=== PATIENT | female | born 1995 | race American Indian/Alaskan Native ===

== ENCOUNTER 2018-12-01 02:07 | Emergency (ER) | payer SELFPAY ==
[2018-12-01] MEDS ORDERED: SODIUM CHLORIDE 0.9% 1000 ML 1,000 ML IV ONE (02:56)
[2018-12-01] MEDS ORDERED: ONDANSETRON 4 MG/2 ML INJ IV ONE (02:56)
[2018-12-01] MEDS ORDERED: MORPHINE 4 MG/1 ML INJ IV ONE (02:56)
--- NOTE | 2018-12-01 03:00 | Emergency Department Report ---
<HU BEAR - Last Filed: 12/01/18 03:19> ED Abdominal Pain HPI - General Chief Complaint: Abdominal Pain Stated Complaint: VOMITING, DIARRHEA, CHILLS Time Seen by Provider: 12/01/18 02:52 Source: patient Mode of arrival: Ambulatory Limitations: No Limitations - History of Present Illness Initial Comments: This is a 23-year-old female nontoxic, well nourished in appearance, no acute signs of distress presents to the ED with c/o of headache, diarrhea, nausea and vomiting and abdominal 2 days. Patient describes vomiting as food content and yellow gastric acid. Patient describes abdominal pain as cramping and aching with level of 8/10 to right lower and upper abdomen area. Patient denies worst headache or tunderclap headache. Patient denies any blurry vision or visual changes. Denies any head injuries or trauma. Patient stated this is a typical migraine headache for her. She states headache is mostly in the frontal scalp area. Rates headache as a 3 out of 10. Patient denies chest pain, short of breath, fever, chills, stiff neck, numbness or tingling. Patient denies any diarrhea or constipation. Patient denies any recent travels. Patient stated allergies to methylphenidate. PMH includes HTN and migrane headaches which she stated she has not been taking her medications for 2 months. MD Complaint: abdominal pain -: days(s) (2) Location: RUQ, RLQ Radiation: none Migration to: no migration Severity: moderate Severity scale (0 -10): 8 Quality: cramping, aching Consistency: constant Improves With: nothing Worsens With: nothing Associated Symptoms: nausea, vomiting, diarrhea, chills. denies: fever, constipation, dysuria, hematemesis, hematochezia, melena, hematuria, anorexia, syncope - Related Data Previous Rx's Medication Instructions Recorded Last Taken Type AtorvaSTATin [Lipitor] 40 mg PO QHS #30 tab 12/01/18 Unknown Rx Lisinopril [Zestril TAB] 20 mg PO QDAY #30 tablet 12/01/18 Unknown Rx Topiramate [Topamax] 25 mg PO BID #60 tablet 12/01/18 Unknown Rx Triamter/Hctz 37.5-25 mg 1 tab PO QDAY #30 tablet 12/01/18 Unknown Rx [Maxzide-25] amLODIPine [Norvasc] 10 mg PO DAILY #30 tab 12/01/18 Unknown Rx Allergies Allergy/AdvReac Type Severity Reaction Status Date / Time methylphenidate Allergy Diarrhea Verified 12/01/18 02:30 [From Ritalin] ED Review of Systems Constitutional: chills. denies: fever Eyes: denies: eye pain, eye discharge, vision change ENT: denies: ear pain, throat pain Respiratory: denies: cough, shortness of breath, wheezing Cardiovascular: denies: chest pain, palpitations Endocrine: no symptoms reported Gastrointestinal: abdominal pain, nausea, vomiting. denies: diarrhea Genitourinary: denies: urgency, dysuria, discharge Musculoskeletal: denies: back pain, joint swelling, arthralgia Skin: denies: rash, lesions Neurological: headache. 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 - Surgical History Past Surgical History?: No - Social History Smoking Status: Current Every Day Smoker Substance Use Type: None - Medications Home Medications: Home Medications Medication Instructions Recorded Confirmed Last Taken Type AtorvaSTATin [Lipitor] 40 mg PO QHS #30 tab 12/01/18 Unknown Rx Lisinopril [Zestril TAB] 20 mg PO QDAY #30 tablet 12/01/18 Unknown Rx Topiramate [Topamax] 25 mg PO BID #60 tablet 12/01/18 Unknown Rx Triamter/Hctz 37.5-25 mg 1 tab PO QDAY #30 tablet 12/01/18 Unknown Rx [Maxzide-25] amLODIPine [Norvasc] 10 mg PO DAILY #30 tab 12/01/18 Unknown Rx ED Physical Exam - General Limitations: No Limitations General appearance: alert, in no apparent distress - Head Head exam: Present: atraumatic, normocephalic - Eye Eye exam: Present: normal appearance, PERRL, EOMI - Neck Neck exam: Present: normal inspection, full ROM. Absent: tenderness, meningismus, lymphadenopathy - Respiratory Respiratory exam: Present: normal lung sounds bilaterally. Absent: respiratory distress, wheezes, rales, rhonchi, stridor, chest wall tenderness, accessory muscle use, decreased breath sounds, prolonged expiratory - Cardiovascular Cardiovascular Exam: Present: regular rate, normal rhythm, normal heart sounds. Absent: irregular rhythm, systolic murmur, diastolic murmur, rubs, gallop - GI/Abdominal GI/Abdominal exam: Present: soft, tenderness (RUQ and RLQ), normal bowel sounds. Absent: distended, guarding, rebound, rigid, diminished bowel sounds - Extremities Exam Extremities exam: Present: normal inspection, full ROM - Back Exam Back exam: Present: normal inspection, full ROM. Absent: tenderness, CVA tenderness (R), CVA tenderness (L) - Neurological Exam Neurological exam: Present: alert, oriented X3, normal gait - Expanded Neurological Exam Expanded Patient oriented to: Present: person, place, time Cranial nerves: EOM's Intact: Normal, Facial Sensation: Normal Cerebellar function: Finger to Nose: Normal Motor strength exam: RUE: 5, LUE: 5, RLE: 5, LLE: 5 Best Eye Response (Schlater): (4) open spontaneously Best Motor Response (Nam): (6) obeys commands Best Verbal Response (Schlater): (5) oriented Nam Total: 15 - Psychiatric Psychiatric exam: Present: normal affect, normal mood - Skin Skin exam: Present: warm, dry, intact, normal color. Absent: rash ED Course - Reevaluation(s) Reevaluation #1: 12/01/18 03:06 Patient is speaking in full sentences with no signs of distress noted. - Consultations Consultation #1: 12/01/18 03:06 Patient has been consulted with Dr. Topher V about patient history and physical exam and examined patient self and agrees to ED plan of care. ED Medical Decision Making - Lab Data Result diagrams: 12/01/18 02:49 - Medical Decision Making This is a 23-year-old female that presents with abdominal pain, nausea vomiting as well as headache. Patient is currently stable and was examined by me and Dr. Topher V. labs ordered. CT abdomen/pelvis with IV contrast ordered. EKG obtained. Normal saline, atenolol, morphine and Zofran started. Patient was signed out to Dr. Obando for further evaluation and treatment. At time of sign out, the patient does not seem toxic or ill in appearance. No acute signs of distress noted. ED Disposition Clinical Impression: Hypertensive urgency, Migraine headache, Abdominal pain, Medication refill Disposition: DC-01 TO HOME OR SELFCARE Condition: Stable Instructions: Abdominal Pain (ED), Hypertension (ED), Migraine Headache (ED) Prescriptions: AtorvaSTATin [Lipitor] 40 mg PO QHS #30 tab Triamter/Hctz 37.5-25 mg [Maxzide-25] 1 tab PO QDAY #30 tablet amLODIPine [Norvasc] 10 mg PO DAILY #30 tab Topiramate [Topamax] 25 mg PO BID #60 tablet Lisinopril [Zestril TAB] 20 mg PO QDAY #30 tablet Referrals: [facility] MD MAURA [Primary Care Provider] - 3-5 Days Forms: Work/School Release Form(ED) <MARIELA OBANDO - Last Filed: 12/01/18 05:40> ED Review of Systems ROS: Stated complaint: VOMITING, DIARRHEA, CHILLS Other details as noted in HPI ED Course Vital Signs 12/01/18 12/01/18 12/01/18 02:19 02:48 02:50 Temperature 97.5 F L 97.9 F Pulse Rate 87 81 Respiratory 16 14 Rate Blood Pressure 214/150 Blood Pressure 214/150 [Left] O2 Sat by Pulse 98 100 99 Oximetry 12/01/18 12/01/18 12/01/18 03:00 03:15 03:30 Temperature Pulse Rate 79 84 74 Respiratory 13 14 15 Rate Blood Pressure 214/150 194/137 194/137 Blood Pressure [Left] O2 Sat by Pulse 100 99 Oximetry 12/01/18 12/01/18 12/01/18 03:45 04:15 04:30 Temperature Pulse Rate 72 68 Respiratory 14 20 Rate Blood Pressure 184/132 186/130 Blood Pressure [Left] O2 Sat by Pulse 99 100 99 Oximetry 12/01/18 12/01/18 12/01/18 04:45 05:00 05:15 Temperature Pulse Rate 71 61 65 Respiratory 14 23 20 Rate Blood Pressure 180/120 184/114 171/108 Blood Pressure [Left] O2 Sat by Pulse 99 99 99 Oximetry 12/01/18 05:30 Temperature Pulse Rate 65 Respiratory 17 Rate Blood Pressure 189/129 Blood Pressure [Left] O2 Sat by Pulse 99 Oximetry ED Medical Decision Making - Lab Data Result diagrams: 12/01/18 02:49 12/01/18 02:49 - Medical Decision Making I evalauted Mrs. Mata. She has multiple concerns. She does not have a primary care provider or insurance. She has moved from [place], [place] 6 months ago. She tried to make her medication last, which is while is not taking her medication daily. Home medications include; Lisinopril Triamterene/HCTZ Amlodipine Topiramate Atorvastatin 1. mild headache, hx of migraine CROWELL, typical for patient, resolved with medications in the ED. She has chronic migraine. She takes topiramate daily to address this. 2. abdominal pain with normal CT and normal WBC, no indication of peritonitis or acute inflammatory process 3. Hypertensive urgency: no evidence of end organ damage BP improved to 180/120 with IV labetalol, Patient admits BP is rarely below this value 4. Medication refill: I provided refills for out 5 medications Referred to [facility] Critical care attestation.: If time is entered above; I have spent that time in minutes in the direct care of this critically ill patient, excluding procedure time. ED Disposition Is pt being admited?: No Does the pt Need Aspirin: No
[2018-12-01 03:07] LABS: Basophils % (Auto) 0.6 % (0.0-1.8); Eosinophils # (Auto) 0.2 K/mm3 (0.0-0.4); Eosinophils % (Auto) 2.9 % (0.0-4.3); Hematocrit 38.9 % (30.3-42.9); Hemoglobin 13.2 gm/dl (10.1-14.3); Lymphocytes # (Auto) 1.5 K/mm3 (1.2-5.4); Lymphocytes % (Auto) 26.8 % (13.4-35.0); Mean Corpuscular HGB Conc 34 % (30-34); Mean Corpuscular Volume 88 fl (79-97); Monocytes # (Auto) 0.3 K/mm3 (0.0-0.8); Monocytes % (Auto) 5.7 % (0.0-7.3); Platelet Count 231 K/mm3 (140-440); Red Blood Count 4.42 M/mm3 (3.65-5.03); Red Cell Distribution Width 13.4 % (13.2-15.2)
[2018-12-01 03:40] LABS: Alanine Aminotransferase 12 units/L (7-56); Albumin 4.4 g/dL (3.9-5); BUN/Creatinine Ratio 12; Blood Urea Nitrogen 7 mg/dL (7-17); Hemolysis Index 0
[2018-12-01 04:36] LABS: Bilirubin,Urine NEG (Negative); Color,Urine Yellow (Yellow)
[2018-12-01 04:37] LABS: Bacteria,Urine 1+ /HPF (Negative); Blood,Urine LG (Negative); Mucus,Urine FEW /HPF; Urobilinogen,Urine < 2.0 mg/dL (<2.0)
--- NOTE | 2018-12-01 04:40 | Cat Scan Report ---
CT ABDOMEN AND PELVIS WITH CONTRAST INDICATION / CLINICAL INFORMATION: abdominal pain. TECHNIQUE: Axial CT images were obtained through the abdomen and pelvis after 100 mL Omnipaque [address] scans at this location are performed using CT dose reduction for ALARA by means of automated exposure control. COMPARISON: None available. FINDINGS: LOWER CHEST: No significant abnormality. LIVER: No significant abnormality. GALLBLADDER: No significant abnormality. BILE DUCTS: No significant abnormality. PANCREAS: No significant abnormality. SPLEEN: No significant abnormality. ADRENALS: No significant abnormality. RIGHT KIDNEY and URETER: No significant abnormality. LEFT KIDNEY and URETER: No significant abnormality. STOMACH and SMALL BOWEL: No significant abnormality. COLON: No significant abnormality. APPENDIX: No significant abnormality. PERITONEUM: Trace free fluid in the cul-de-sac. No free air. No fluid collection. LYMPH NODES: No significant adenopathy. AORTA and ARTERIES: No significant abnormality. IVC and VEINS: Left-sided inferior vena cava which empties into the left renal vein. URINARY BLADDER: No significant abnormality. REPRODUCTIVE ORGANS: Uterus shows no acute abnormality. ADDITIONAL FINDINGS: None. SKELETAL SYSTEM: No significant abnormality. IMPRESSION: 1. No inflammatory process or bowel obstruction. 2. Trace free fluid in the pelvis which may be physiologic in this young female patient. Signer Name: Antoinette Victoria MD Signed: 12/01/2018 4:35 AM Workstation Name: [id number]
[2018-12-01] MEDS ORDERED: POTASSIUM CHLORIDE ER 20 MEQ TAB PO ONE (04:55)
[2018-12-01 05:55] VITALS: BP 199/130
== END 2018-12-01 05:56 | disposition home or self-care (01) ==
LOC: ED 02:07
DX: G43.909 Migraine, unspecified, not intractable, without status migrainosus (principal); I16.0 Hypertensive urgency; R10.9 Unspecified abdominal pain; I10 Essential (primary) hypertension; F17.200 Nicotine dependence, unspecified, uncomplicated; Z76.0 Encounter for issue of repeat prescription; Z88.8 Allergy status to other drugs, medicaments and biological substances
CPT/HCPCS: 36415; 74177; 80053; 81001; 83690; 84703; 85025; 93005; 93010; 96361; 96374; 96375; 99284; J2270; J2405; J7030; Q9967

== ENCOUNTER 2019-06-21 15:56 | Emergency (ER) | payer OTHER ==
--- NOTE | 2019-06-21 17:23 | Emergency Department Report ---
<GUILLAUME CHANDLER III - Last Filed: 06/22/19 02:18> ED HPI - General Chief complaint: High BP Stated complaint: 6WKS PREGANT/HBP Time Seen by Provider: 06/21/19 16:59 - Related Data Previous Rx's Medication Instructions Recorded Last Taken Type AtorvaSTATin [Lipitor] 40 mg PO QHS #30 tab 12/01/18 Unknown Rx Topiramate [Topamax] 25 mg PO BID #60 tablet 12/01/18 Unknown Rx Triamter/Hctz 37.5-25 mg 1 tab PO QDAY #30 tablet 12/01/18 Unknown Rx [Maxzide-25] amLODIPine 10 mg PO DAILY #30 tab 12/01/18 Unknown Rx lisinopriL [Zestril TAB] 20 mg PO QDAY #30 tablet 12/01/18 Unknown Rx Allergies Allergy/AdvReac Type Severity Reaction Status Date / Time methylphenidate Allergy Diarrhea Verified 12/01/18 02:30 [From Ritalin] ED Past Medical Hx - Medications Home Medications: Home Medications Medication Instructions Recorded Confirmed Last Taken Type AtorvaSTATin [Lipitor] 40 mg PO QHS #30 tab 12/01/18 Unknown Rx Topiramate [Topamax] 25 mg PO BID #60 tablet 12/01/18 Unknown Rx Triamter/Hctz 37.5-25 mg 1 tab PO QDAY #30 tablet 12/01/18 Unknown Rx [Maxzide-25] amLODIPine 10 mg PO DAILY #30 tab 12/01/18 Unknown Rx lisinopriL [Zestril TAB] 20 mg PO QDAY #30 tablet 12/01/18 Unknown Rx ED Course - Reevaluation(s) Reevaluation #1: Patient was signed out to me from the previous ER physician, Dr. Treviño. Patient has a pending ultrasound and her blood pressure needs to improve. 06/21/19 20:00 Reevaluation #2: Patient's blood pressure still significantly elevated and patient will be given 200 mg of labetalol. 06/21/19 21:25 Reevaluation #3: Patient blood pressure still elevated. Patient will be given hydralazine 20 mg IV. Patient denies pain. Patient denies discomfort. Patient states the vaginal bleeding has decreased. 06/21/19 22:26 Reevaluation #4: Blood pressure has improved. Patient denies headache. Patient denies blurry vision. Patient denies chest pain or shortness of breath. I discussed all results and clinical findings with patient. I discussed plan of care with patient. Patient agrees with plan of care. Patient is stable for discharge. Patient will be discharged home. Patient given discharge instructions. Patient voiced understanding of discharge instructions. 06/21/19 23:01 ED Medical Decision Making - Lab Data Result diagrams: 06/21/19 17:19 06/21/19 17:19 - Radiology Data Radiology results: report reviewed ULTRASOUND OBSTETRIC INDICATION / CLINICAL INFORMATION: , vag bleed. Beta hCG 7728 Clinical Gestational Age (GA): Approximately 6 weeks TECHNIQUE: Transvaginal. COMPARISON: Transabdominal sonogram from earlier the same day FINDINGS: GESTATIONAL SAC: None identified. ADNEXA: No significant abnormality. Ovaries have normal sonographic appearance. FREE FLUID: None. ADDITIONAL FINDINGS: The uterus is 9 x 4.3 x 5.3 cm with a 12 mm endometrial stripe. IMPRESSION: of unknown location. Continued close clinical follow-up is recommended, with serial measurement of beta-hCG and repeat ultrasound as needed ED Disposition Clinical Impression: Uncontrolled hypertension, Threatened miscarriage Disposition: DC- TO HOME OR SELFCARE Is pt being admited?: No Does the pt Need Aspirin: No Condition: Stable Instructions: Hypertension (ED) Additional Instructions: Follow-up with your COMPOUND SPECIALIST. Take your blood pressure medication as prescribed (new dosage). Return if symptoms worsen as indicated by your discharge instructions. Patient to follow-up with primary care in 2 to 3 days. Patient to follow-up with COMPOUND SPECIALIST within 48 hours. Patient to rest. Patient to increase water. Patient to avoid strenuous exercise or heavy lifting until cleared by COMPOUND SPECIALIST. Nothing per vagina until cleared by COMPOUND SPECIALIST. Patient to eat a low-salt, heart healthy diet. Patient to take Tylenol as needed for pain. Patient to start a vitamin. Patient to monitor blood pressure and keep a blood pressure log and taken to her follow-up appointments. Patient to take blood pressure medications as directed by her COMPOUND SPECIALIST today. Patient to return to the ER if condition worsens, changes or new symptoms arise. Referrals: your, campus recruiting coordinator [Other] - [facility] Time of Disposition: 23:01 <POOJA TREVIÑO - Last Filed: 06/22/19 17:10> ED HPI - General Source: patient Mode of arrival: Ambulatory Limitations: No Limitations - History of Present Illness Initial comments: 24-year-old female with a past medical history of chronic hypertension currently on labetalol 100 mg twice daily presents to the hospital complaining of 6 weeks 1 day gestation of (by lmp), elevated blood pressure, and vaginal bleeding. Patient is with her first . She had her first OB appointment today. Shortly before her OB appointment at 3 PM patient developed suprapubic cramping and vaginal bleeding. Patient states she had an ultrasound performed in the office. Results are not available to us at this time. Patient was sent to the ER for evaluation given elevated blood pressure. Patient did take her labetalol 100 mg at 10 AM. OB clinic wrote a new prescription for labetalol 300 mg twice daily. Patient denies headache, blurry vision, chest pain, or shortness of breath. Pt was [place] by Dominick Lopez [place] [facility] 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 - Surgical History Past Surgical History?: No - Social History Smoking Status: Current Every Day Smoker Substance Use Type: None ED Physical Exam - General Limitations: No Limitations - Other Other exam information: General: No acute distress Head: Atraumatic Eyes: normal appearance ENT: Moist mucous membranes Neck: Normal appearance, no midline tenderness Chest: Clear to auscultation bilaterally CV: Regular rate and rhythm Abdomen: Soft, normal bowel sounds, nontender, mild suprapubic tender, no rebound or guarding Back: Normal inspection Extremity: Normal inspection, full range of motion Neuro: Alert O x 3, no facial asymmetry, speech clear, no gross motor sensory deficit Psych: Appropriate behavior Skin: No rash ED Course Vital Signs 06/21/19 06/21/19 06/21/19 16:00 17:31 18:53 Temperature 98.3 F Pulse Rate 79 83 Respiratory 18 22 Rate Blood Pressure 190/141 175/126 191/126 O2 Sat by Pulse 100 100 Oximetry 06/21/19 06/21/19 06/21/19 19:00 19:55 20:01 Temperature Pulse Rate 67 82 Respiratory 22 15 14 Rate Blood Pressure 176/120 170/125 O2 Sat by Pulse 100 98 100 Oximetry 06/21/19 06/21/19 06/21/19 20:15 20:30 20:45 Temperature Pulse Rate 71 69 77 Respiratory 23 22 Rate Blood Pressure 177/124 179/121 180/127 O2 Sat by Pulse 100 100 100 Oximetry 06/21/19 06/21/19 06/21/19 21:00 21:25 21:45 Temperature Pulse Rate 72 75 75 Respiratory 12 Rate Blood Pressure 170/137 170/137 181/127 O2 Sat by Pulse 100 100 Oximetry 06/21/19 06/21/19 06/21/19 22:01 22:40 22:45 Temperature Pulse Rate 77 82 106 H Respiratory 28 H 14 Rate Blood Pressure 181/127 150/105 146/94 O2 Sat by Pulse 100 100 Oximetry 06/21/19 06/21/19 23:00 23:15 Temperature Pulse Rate 115 H 120 H Respiratory 24 17 Rate Blood Pressure 145/88 150/89 O2 Sat by Pulse 100 100 Oximetry ED Medical Decision Making - Lab Data Result diagrams: 06/21/19 17:19 06/21/19 17:19 Lab Results 06/21/19 06/21/19 06/21/19 Range/Units 17:19 17:19 17:19 WBC 4.6 (4.5-11.0) K/mm3 RBC 4.23 (3.65-5.03) M/mm3 Hgb 12.7 (10.1-14.3) gm/dl Hct 38.0 (30.3-42.9) % MCV 90 (79-97) fl MCH 30 (28-32) pg MCHC 33 (30-34) % RDW 14.7 (13.2-15.2) % Plt Count 244 (140-440) K/mm3 Lymph % (Auto) 39.8 H (13.4-35.0) % [place] % (Auto) 6.1 (0.0-7.3) % Eos % (Auto) 2.7 (0.0-4.3) % Baso % (Auto) 0.7 (0.0-1.8) % Lymph # 1.8 (1.2-5.4) K/mm3 [place] # 0.3 (0.0-0.8) K/mm3 Eos # 0.1 (0.0-0.4) K/mm3 Baso # 0.0 (0.0-0.1) K/mm3 Seg Neutrophils % 50.7 (40.0-70.0) % Seg Neutrophils # 2.3 (1.8-7.7) K/mm3 Sodium 138 (137-145) mmol/L Potassium 3.5 L (3.6-5.0) mmol/L Chloride 101.6 (98-107) mmol/L Carbon Dioxide 22 (22-30) mmol/L Anion Gap 18 mmol/L BUN 5 L (7-17) mg/dL Creatinine 0.6 L (0.7-1.2) mg/dL Estimated GFR > 60 ml/min BUN/Creatinine Ratio 8 % Glucose 71 (65-100) mg/dL Calcium 9.5 (8.4-10.2) mg/dL HCG, Quant 7728 H (0-4) mIU/mL Blood Type Antibody Screen 06/21/19 Range/Units 17:30 WBC (4.5-11.0) K/mm3 RBC (3.65-5.03) M/mm3 Hgb (10.1-14.3) gm/dl Hct (30.3-42.9) % MCV (79-97) fl MCH (28-32) pg MCHC (30-34) % RDW (13.2-15.2) % Plt Count (140-440) K/mm3 Lymph % (Auto) (13.4-35.0) % [place] % (Auto) (0.0-7.3) % Eos % (Auto) (0.0-4.3) % Baso % (Auto) (0.0-1.8) % Lymph # (1.2-5.4) K/mm3 [place] # (0.0-0.8) K/mm3 Eos # (0.0-0.4) K/mm3 Baso # (0.0-0.1) K/mm3 Seg Neutrophils % (40.0-70.0) % Seg Neutrophils # (1.8-7.7) K/mm3 Sodium (137-145) mmol/L Potassium (3.6-5.0) mmol/L Chloride (98-107) mmol/L Carbon Dioxide (22-30) mmol/L Anion Gap mmol/L BUN (7-17) mg/dL Creatinine (0.7-1.2) mg/dL Estimated GFR ml/min BUN/Creatinine Ratio % Glucose (65-100) mg/dL Calcium (8.4-10.2) mg/dL HCG, Quant (0-4) mIU/mL Blood Type O POSITIVE Antibody Screen Negative - Medical Decision Making Patient with hypertension. Additional BP meds given in the ED. Patient given labetalol 100 mg p.o. while in ultrasound and additional 100 mg p.o. upon return from ultrasound (total 200mg ordered by Dr Treviño) Tylenol was given for suprapubic cramping Patient s/o to Dr Renae to make sure that BP is trending downward and to follow-up ultrasound result Patient is Rh+ and does not require RhoGam - Differential Diagnosis htn emergency, misscariage, ectopic, threatned ab Critical care attestation.: If time is entered above; I have spent that time in minutes in the direct care of this critically ill patient, excluding procedure time. ED Disposition Is pt being admited?: No Does the pt Need Aspirin: No
[2019-06-21] MEDS ORDERED: ACETAMINOPHEN 325 MG TAB PO ONE (17:26)
[2019-06-21 17:38] LABS: Basophils % (Auto) 0.7 % (0.0-1.8); Eosinophils # (Auto) 0.1 K/mm3 (0.0-0.4); Eosinophils % (Auto) 2.7 % (0.0-4.3); Hemoglobin 12.7 gm/dl (10.1-14.3); Lymphocytes # (Auto) 1.8 K/mm3 (1.2-5.4); Lymphocytes % (Auto) 39.8 % (13.4-35.0); Mean Corpuscular HGB Conc 33 % (30-34); Mean Corpuscular Volume 90 fl (79-97); Monocytes # (Auto) 0.3 K/mm3 (0.0-0.8); Monocytes % (Auto) 6.1 % (0.0-7.3); Platelet Count 244 K/mm3 (140-440); Red Blood Count 4.23 M/mm3 (3.65-5.03); Red Cell Distribution Width 14.7 % (13.2-15.2)
[2019-06-21 17:49] LABS: BUN/Creatinine Ratio 8; Blood Urea Nitrogen 5 mg/dL (7-17); Calcium 9.5 mg/dL (8.4-10.2); Hemolysis Index 10
--- NOTE | 2019-06-21 19:34 | Ultrasound Report ---
ULTRASOUND OBSTETRIC INDICATION / CLINICAL INFORMATION: Vaginal bleeding. Clinical Gestational Age (GA): Approximately 6 weeks TECHNIQUE: Transabdominal. COMPARISON: None available. FINDINGS: GESTATIONAL SAC: Not identified. ADNEXA: No significant abnormality. Both ovaries appear normal. FREE FLUID: None. ADDITIONAL FINDINGS: Uterine dimensions are 9.2 x 4.6 x 4.6 cm. Endometrial stripe is 1.5 cm. IMPRESSION: of unknown location. Continued close clinical follow-up is recommended, with serial measure ment of beta-hCG and repeat ultrasound as needed. Signer Name: Anthony Triana MD Signed: 06/21/2019 7:30 PM Workstation Name: [id number]
--- NOTE | 2019-06-21 21:01 | Ultrasound Report ---
ULTRASOUND OBSTETRIC INDICATION / CLINICAL INFORMATION: , vag bleed. Beta hCG 7728 Clinical Gestational Age (GA): Approximately 6 weeks TECHNIQUE: Transvaginal. COMPARISON: Transabdominal sonogram from earlier the same day FINDINGS: GESTATIONAL SAC: None identified. ADNEXA: No significant abnormality. Ovaries have normal sonographic appearance. FREE FLUID: None. ADDITIONAL FINDINGS: The uterus is 9 x 4.3 x 5.3 cm with a 12 mm endometrial stripe. IMPRESSION: of unknown location. Continued close clinical follow-up is recommended, with serial measure ment of beta-hCG and repeat ultrasound as needed. Signer Name: Anthony Triana MD Signed: 06/21/2019 8:56 PM Workstation Name: [id number]
[2019-06-21] MEDS ORDERED: hydrALAZINE 20 MG/1 ML INJ IV ONE (22:25)
[2019-06-21 23:23] VITALS: BP 150/89
== END 2019-06-21 23:23 | disposition home or self-care (01) ==
LOC: ED 15:56
DX: O20.0 Threatened abortion (principal); O16.1 Unspecified maternal hypertension, first trimester; Z88.6 Allergy status to analgesic agent; Z79.899 Other long term (current) drug therapy; Z3A.01 Less than 8 weeks gestation of pregnancy
CPT/HCPCS: 36415; 76801; 76817; 80048; 84702; 85025; 86850; 86900; 86901; 96374; 99284; J0360

== ENCOUNTER 2020-01-15 11:29 | Emergency (ER) | payer SELFPAY ==
[2020-01-15] MEDS ORDERED: cloNIDine 0.2 MG TAB ONE (12:21)
[2020-01-15] MEDS ORDERED: cloNIDine 0.2 MG TAB PO STA (12:22)
--- NOTE | 2020-01-15 12:22 | Emergency Department Report ---
Blank Doc - Documentation Documentation: 24-year-old Israeli female with past medical history of hypertension, cranial calcification calcification induced migraines, tachycardia who presents to the emergency department complaining of a 2 to 3-day history of nausea with no progressing headache and dizziness associated with her blood pressure being elevated. She also states while at work she was lifting boxes and did develop some pain to her mid mid back area which she thinks may have caused her tingling to her legs. She reports no fevers chills or sweats but has been experiencing some blurred vision. This initial assessment/diagnostic orders/clinical plan/treatment(s) is/are subject to change based on patients health status, clinical progression and re- assessment by fellow clinical providers in the ED. Further treatment and workup at subsequent clinical providers discretion. Patient/guardian urged not to elope from the ED as their condition may be serious if not clinically assessed and managed. Initial orders include: The plan is going to be to obtain a CT scan of the head, labs and clonidine 0.2
--- NOTE | 2020-01-15 15:28 | Cat Scan Report ---
CT BRAIN: 01/15/2020 INDICATION / CLINICAL INFORMATION: headache. COMPARISON: None available. FINDINGS: BRAIN/INTRACRANIAL STRUCTURES: Unenhanced CT images of the brain demonstrate no evidence of acute int racranial abnormality. Ventricles and sulci are normal in size and shape. There is no evidence of acute ischemic injury, hemorrhage, or mass. There is a 1 cm area of hypoattenuation located adjacent to the left caudate head. This may be the re sult of prior lacunar ischemic injury. The appearance is nonspecific. EXTRACRANIAL STRUCTURES: Unremarkable. IMPRESSION: No acute abnormality. Chronic appearing 1 cm hypodensity in left caudate head region. All CT scans at this location are performed using dose reduction to ALARA by means of automated expos ure control. Signer Name: Brenden Pryor MD Signed: 01/15/2020 3:23 PM Workstation Name: [id number]
[2020-01-15 16:21] LABS: Basophils % (Auto) 0.9 % (0.0-1.8); Eosinophils # (Auto) 0.1 K/mm3 (0.0-0.4); Eosinophils % (Auto) 2.9 % (0.0-4.3); Hematocrit 37.8 % (30.3-42.9); Hemoglobin 12.7 gm/dl (10.1-14.3); Lymphocytes # (Auto) 1.5 K/mm3 (1.2-5.4); Mean Corpuscular HGB Conc 34 % (30-34); Mean Corpuscular Volume 91 fl (79-97); Monocytes # (Auto) 0.4 K/mm3 (0.0-0.8); Monocytes % (Auto) 7.5 % (0.0-7.3); Platelet Count 225 K/mm3 (140-440); Red Blood Count 4.17 M/mm3 (3.65-5.03); Red Cell Distribution Width 13.6 % (13.2-15.2)
[2020-01-15 16:32] LABS: Blood Urea Nitrogen 5 mg/dL (7-17); Calcium 9.1 mg/dL (8.4-10.2); Hemolysis Index 17
[2020-01-15 16:48] LABS: BUN/Creatinine Ratio 8
--- NOTE | 2020-01-15 17:04 | Emergency Department Report ---
ED Dizziness HPI - General Chief Complaint: Back Pain/Injury Stated Complaint: BACK PAIN/LIGHT HEADED/DIZZY Time Seen by Provider: 01/15/20 16:31 Source: patient Mode of arrival: Ambulatory Limitations: No Limitations - History of Present Illness Initial Comments: CC: lightheadedness HPI: THis is a 24 yo female with hx of HTN, "calcified brain tumor", migraine headaches who presents with lightheadedness, dizziness today at work. She developed right leg numbness transiently while at work. NO paralysis. No visual changes. No trouble with speech. She had back pain which has resolved. MD Complaint: dizziness, lightheadedness -: Gradual, days(s) (1) Timing: gradual onset Description: lightheadedness History of Same: No History of Trauma: No Severity: moderate Improves With: rest Associated Symptoms: other (chronic headache, right leg numbness) - Related Data Previous Rx's Medication Instructions Recorded Last Taken Type AtorvaSTATin [Lipitor] 40 mg PO QHS #30 tab 12/01/18 Unknown Rx Topiramate [Topamax] 25 mg PO BID #60 tablet 12/01/18 Unknown Rx Triamter/Hctz 37.5-25 mg 1 tab PO QDAY #30 tablet 12/01/18 Unknown Rx [Maxzide-25] amLODIPine 10 mg PO DAILY #30 tab 12/01/18 Unknown Rx lisinopriL [Zestril TAB] 20 mg PO QDAY #30 tablet 12/01/18 Unknown Rx amLODIPine 5 mg PO DAILY 90 Days #90 tablet 01/15/20 Unknown Rx hydroCHLOROthiazide [HCTZ] 25 mg PO QDAY 90 Days #90 tablet 01/15/20 Unknown Rx Allergies Allergy/AdvReac Type Severity Reaction Status Date / Time methylphenidate Allergy Diarrhea Verified 12/01/18 02:30 [From Ritalin] ED Review of Systems ROS: Stated complaint: BACK PAIN/LIGHT HEADED/DIZZY Other details as noted in HPI Comment: All other systems reviewed and negative Constitutional: denies: fever, malaise Respiratory: denies: cough, shortness of breath Cardiovascular: denies: chest pain Neurological: headache, numbness, paresthesias. denies: weakness, confusion, abnormal gait ED Past Medical Hx - Past Medical History Previous Medical History?: Yes Hx Hypertension: Yes Additional medical history: High cholesterol, Calcified tumor on brain - Social History Smoking Status: Never Smoker Substance Use Type: None - Medications Home Medications: Home Medications Medication Instructions Recorded Confirmed Last Taken Type AtorvaSTATin [Lipitor] 40 mg PO QHS #30 tab 12/01/18 Unknown Rx Topiramate [Topamax] 25 mg PO BID #60 tablet 12/01/18 Unknown Rx Triamter/Hctz 37.5-25 mg 1 tab PO QDAY #30 tablet 12/01/18 Unknown Rx [Maxzide-25] amLODIPine 10 mg PO DAILY #30 tab 12/01/18 Unknown Rx lisinopriL [Zestril TAB] 20 mg PO QDAY #30 tablet 12/01/18 Unknown Rx amLODIPine 5 mg PO DAILY 90 Days #90 tablet 01/15/20 Unknown Rx hydroCHLOROthiazide [HCTZ] 25 mg PO QDAY 90 Days #90 tablet 01/15/20 Unknown Rx ED Physical Exam - General Limitations: No Limitations General appearance: alert, in no apparent distress - Head Head exam: Present: atraumatic, normocephalic - Eye Eye exam: Present: normal appearance - ENT ENT exam: Present: mucous membranes moist - Neck Neck exam: Present: normal inspection, full ROM - Respiratory Respiratory exam: Present: normal lung sounds bilaterally. Absent: respiratory distress, wheezes, rales, rhonchi - Cardiovascular Cardiovascular Exam: Present: regular rate, normal rhythm, normal heart sounds. Absent: systolic murmur, diastolic murmur, rubs, gallop - GI/Abdominal GI/Abdominal exam: Present: soft, normal bowel sounds. Absent: distended, tenderness, guarding, rebound - Extremities Exam Extremities exam: Present: normal inspection - Back Exam Back exam: Present: normal inspection, full ROM. Absent: tenderness, CVA tenderness (R), CVA tenderness (L), muscle spasm, paraspinal tenderness, vertebral tenderness - Neurological Exam Neurological exam: Present: alert, oriented X3 - Expanded Neurological Exam Expanded Patient oriented to: Present: person, place, time Speech: Present: fluid speech Cranial nerves: EOM's Intact: Normal Cerebellar function: Finger to Nose: Normal Upper motor neuron: Jin Neglect: Normal Sensory exam: Upper Extremity Light Touch: Normal Motor strength exam: RUE: 5, LUE: 5, RLE: 5, LLE: 5 - Psychiatric Psychiatric exam: Present: normal affect, normal mood - Skin Skin exam: Present: warm, dry, intact, normal color. Absent: rash ED Course Vital Signs 01/15/20 01/15/20 12:17 12:23 Temperature 98 F Pulse Rate 101 H 101 H Respiratory 18 Rate Blood Pressure 225/166 225/166 O2 Sat by Pulse 99 Oximetry ED Medical Decision Making - Lab Data Result diagrams: 01/15/20 13:22 01/15/20 13:22 Laboratory Results - last 24 hr 01/15/20 01/15/20 01/15/20 13:22 13:22 13:22 WBC 4.9 RBC 4.17 Hgb 12.7 Hct 37.8 MCV 91 MCH 30 MCHC 34 RDW 13.6 Plt Count 225 Lymph % (Auto) 31.0 Wheeler % (Auto) 7.5 H Eos % (Auto) 2.9 Baso % (Auto) 0.9 Lymph # (Auto) 1.5 Wheeler # (Auto) 0.4 Eos # (Auto) 0.1 Baso # (Auto) 0.0 Seg Neutrophils % 57.7 Seg Neutrophils # 2.8 Sodium 137 Potassium 3.2 L Chloride 101.5 Carbon Dioxide 26 Anion Gap 13 BUN 5 L Creatinine 0.6 Estimated GFR > 60 BUN/Creatinine Ratio 8 Glucose 82 Calcium 9.1 HCG, Qual Negative - Radiology Data Radiology results: report reviewed CT BRAIN: 01/15/2020 INDICATION / CLINICAL INFORMATION: headache. COMPARISON: None available. FINDINGS: BRAIN/INTRACRANIAL STRUCTURES: Unenhanced CT images of the brain demonstrate no evidence of acute intracranial abnormality. Ventricles and sulci are normal in size and shape. There is no evidence of acute ischemic injury, hemorrhage, or mass. There is a 1 cm area of hypoattenuation located adjacent to the left caudate head. This may be the result of prior lacunar ischemic injury. The appearance is nonspecific. EXTRACRANIAL STRUCTURES: Unremarkable. IMPRESSION: No acute abnormality. Chronic appearing 1 cm hypodensity in left caudate head region. - Medical Decision Making 1. lightheadedness, possibly due to hypertensive urgency, no anemia, mild hypokalemia on chemistry, negative 2. hypertensive urgency: patient unable to afford medications without health insurance, normal kidney function, I have prescribed 90 day supply HCTZ, amlodipine 3. transient right leg numbness: isolated extremity numbness not typical for TIA, sciatica or nerve compression syndrome more likely, chronic findings on CT head Patient verbalized understanding of return precautions. She was referred to outpatient medicine physician. Critical care attestation.: If time is entered above; I have spent that time in minutes in the direct care of this critically ill patient, excluding procedure time. ED Disposition Clinical Impression: Hypertensive urgency, Lightheadedness, Right leg numbness, Hypokalemia Disposition: DC- TO HOME OR SELFCARE Is pt being admited?: No Does the pt Need Aspirin: No Condition: Stable Instructions: Hypertension, Adult, Cgsa-to-[id number] Prescriptions: amLODIPine 5 mg PO DAILY 90 Days #90 tablet hydroCHLOROthiazide [HCTZ] 25 mg PO QDAY 90 Days #90 tablet Referrals: CIERRA HATHAWAY MD [Staff Physician] - 3-5 Days Forms: Work/School Release Form(ED)
[2020-01-15 17:12] VITALS: BP 187/124
== END 2020-01-15 17:12 | disposition home or self-care (01) ==
LOC: ED 11:29
DX: R42 Dizziness and giddiness (principal); I10 Essential (primary) hypertension; E78.00 Pure hypercholesterolemia, unspecified
CPT/HCPCS: 36415; 70450; 80048; 84703; 85025